=== PATIENT | female | born 1995 | race Asian ===

== ENCOUNTER 2020-07-02 16:15 | Inpatient (IN) | payer OTHER ==
[~2020-07-02] VITALS: Ht 160 cm; Wt 67.4 kg
[2020-07-02] VITALS (8 sets, daily range): BP systolic 106–131; BP diastolic 65–80
[2020-07-02] MEDS ORDERED: PRENTAB9 PO (16:45)
[2020-07-02] MEDS ORDERED: APAP325T4 PO (16:45)
[2020-07-02] MEDS ORDERED: TUMS750C5 PO (16:45)
[2020-07-02] MEDS ORDERED: LACTATED RINGER'S 1000 ML IV ONE (17:30)
[2020-07-02] MEDS ORDERED: miSOPROStol 50 MCG 1/2 TAB (S0191) PO ONE ×2 (17:30→21:30)
[2020-07-02 17:40] LABS: HEMATOCRIT 38.5 % (36.0-47.0); HEMOGLOBIN 12.7 g/dl (12.0-15.5); MEAN CORPUSCULAR HEMOGLOBIN 29.4 pg (27.0-33.0); MEAN CORPUSCULAR VOLUME 89.1 fl (80.0-96.0); PLATELET COUNT, AUTOMATED 176 10^3/uL (150-450); RED BLOOD COUNT 4.32 10^6/uL (4.00-5.40); WHITE BLOOD COUNT 12.1 10^3/uL (4.0-10.0)
[2020-07-03] VITALS (18 sets, daily range): BP systolic 98–140; BP diastolic 57–94
[2020-07-03] MEDS: LR 1,000 ML IV SCH ×4 (04:30→17:21)
[2020-07-03] MEDS ORDERED: miSOPROStol 50 MCG 1/2 TAB (S0191) PO ONE (08:30)
[2020-07-03] MEDS ORDERED: miSOPROStol 50 MCG 1/2 TAB (S0191) PO PRN (12:00)
--- NOTE | 2020-07-03 17:45 | IPNPDOC ---
Text Note Date of Service The patient was seen on 07/03/20. NOTE S: Patient having some cramps. No LOF. +FM. O: VSS WNL ABD NT, gravid SVE: 2/80/-2 FHT: Cat 1, 130s, reactive, no decels, irregular ctx Lea bulb placed with 40cc without difficulty A/P: Fetus reassuring. Patient progressing in latent labor. D/w patient diff erent IOL techniques of cytotec, pitocin and lea bulb R/B/As. Also d/w pain mgt options for her. Will give next dose of cytotec 25mcg PO then switch to pitocin IV as cervical ripening will be complete. VS,Fishbone, I+O VS, Fishbone, I+O Vital Signs Date Time Temp Pulse Resp B/P (MAP) Pulse Ox O2 Delivery O2 Flow Rate FiO2 07/03/20 15:08 97.9 85 18 118/75 (89) I&O- Last 24 Hours up to 6 AM 07/03/20 05:59 Intake Total 240 ml Output Total 200 ml Balance 40 ml Sarah Chin MD Jul 03, 2020 17:45
[2020-07-03] MEDS ORDERED: LR 1,000 ML IV SCH (17:46)
[2020-07-03] MEDS ORDERED: miSOPROStol 25 MCG 1/4 TAB (S0191) PO ONE (18:00)
[2020-07-03] MEDS ORDERED: OXYTOCIN DRIP 30 UNITS in IV 1 EA IV SCH (22:00)
[2020-07-04] VITALS (39 sets, daily range): BP systolic 110–137; BP diastolic 65–92
[2020-07-04] MEDS: LR 1,000 ML IV SCH ×3 (04:00→20:36)
--- NOTE | 2020-07-04 07:02 | IPNPDOC ---
Text Note Date of Service The patient was seen on 07/04/20. NOTE S: Comfortable. Began pitocin. O: VSS WNL ABD gravid, NT SVE def, leonora fell out last night LE no edema, NT FHT: cat 1, 130s, reactive, no decels, ctx q2-3min A/P: Fetus reassuring. Continue pitocin. VS,Fishbone, I+O VS, Fishbone, I+O Vital Signs Date Time Temp Pulse Resp B/P (MAP) Pulse Ox O2 Delivery O2 Flow Rate FiO2 07/04/20 06:27 72 18 117/70 (86) 07/03/20 18:12 98.0 I&O- Last 24 Hours up to 6 AM 07/04/20 05:59 Intake Total 2575 ml Balance 2575 ml Sarah Chin MD Jul 04, 2020 07:02
[2020-07-04] MEDS ORDERED: BUTORPHANOL 2 MG/ML INJ (J0595) IV PRN (10:45)
[2020-07-04] MEDS ORDERED: PROMETHAZINE INJ 25 MG/ML VIAL (J2550) IV PRN (10:45)
[2020-07-05] VITALS (20 sets, daily range): BP systolic 107–132; BP diastolic 55–80
[2020-07-05] MEDS ORDERED: SIMETHICONE 80 MG CHEW TAB PO PRN (02:00)
[2020-07-05] MEDS ORDERED: CALCIUM CARBONATE 500 MG CHEW U/D PO PRN (02:00)
[2020-07-05] MEDS ORDERED: diphenhydrAMINE 25MG CAP PO PRN (02:00)
[2020-07-05] MEDS: LR 1,000 ML IV SCH ×2 (03:18→08:09)
[2020-07-05] MEDS ORDERED: OXYTOCIN DRIP 30 UNITS in IV 1 EA IV SCH (03:55)
[2020-07-05] MEDS ORDERED: ANUSOL HC CREAM 30GM TOP PRN (04:00)
[2020-07-05] MEDS ORDERED: ONDANSETRON 4MG/2ML VIAL IV PRN (04:00)
[2020-07-05] MEDS ORDERED: RHOGAM 300 MCG (1500 IU) INJ (J2790) IM SCH (04:00)
[2020-07-05] MEDS ORDERED: LIDOCAINE 1% MDV 20ML VIAL INFIL ONE (04:00)
[2020-07-05] MEDS ORDERED: DIBUCAINE 1% OINTMENT 30GM TOP PRN (04:00)
[2020-07-05] MEDS ORDERED: METHYLERGONOVINE MALEATE 0.2 MG TAB PO PRN (04:00)
[2020-07-05] MEDS ORDERED: MEASLES,MUMPS,RUBELLA VACCINE INJ (MMR-II) (90707) SC SCH (04:00)
--- NOTE | 2020-07-05 04:00 | DNPDOC ---
[facility] Delivery Note Delivery Note DATE OF DELIVERY: 07/05/2020 PREDELIVERY DIAGNOSIS: 41-3/7 weeks' gestation and labor. POST DELIVERY DIAGNOSIS: Delivered. PROCEDURE: Spontaneous vaginal delivery. PULP REFINER OPERATOR: Dr. Sarah Chin ANESTHESIA: Local. ESTIMATED BLOOD LOSS: 250 mL. FINDINGS: 7 pound 15ounce 3600gm girl infant, Score 8/9, nuchal cord times 0. DELIVERY SUMMARY: Patient is a 24-year-old 1 now para 1 who was admitted to labor and delivery for active labor for 50hours. Patient SROM clear around 0116 today. Baby girl was rotated from OP to OA prior to delivery of head was delivered without difficulty as ML episiotomy was cut due to tearing toward perineum in KLEVER position at 0251 . The nose and mouth were bulb suctioned. No nuchal cord was noted. The shoulders were then delivered without difficulty. Infant was handed on mother's belly. Cord was then clamped x2 and cut after pulsation. Pitocin bolus was started. Perineum and vagina was inspected and found to have a deep left vaginal laceration and ML episiotomy. This was repaired with 1% lidocaine 20cc with 2-0 and 0-0chromic. The placenta was then delivered at 0316 spontaneously intact. Cord had a 3 vessel cord. EBL was 350mL. The vagina and perineum were reinspected and no further lacerations were found and hemostasis was good. Fundus was firm. Patient tolerated delivery well. Sarah Chin MD Jul 05, 2020 01:53
[2020-07-05] MEDS: DOCUSATE SODIUM 100 MG CAP PO SCH ×2 (08:08→21:49)
[2020-07-05] MEDS: PRENATAL VITAMINS CHEWABLE TABLET PO SCH (08:08)
[2020-07-05] MEDS: ACETAMINOPHEN 500 MG TAB PO PRN (08:08)
[2020-07-05] MEDS: IBUPROFEN 800 MG TAB PO PRN ×2 (16:38→21:49)
--- NOTE | 2020-07-06 04:22 | IPNPDOC ---
Progress Note Date of Service: Jul 06, 2020 Day#: 1 Progress Note SUBJECT: 24-year-old 1 now Para 1 status post uncomplicated spontaneous vaginal delivery over MLE, doing well day #1. She has been ambulating, voiding spontaneously without issue and tolerating regular diet. Breast feeding without issue. Reports lochia is decreasing. Patient is ambulating well. Reports perineal pain that is controlled with pain meds. Voiding without difficulty. OBJECTIVE: VITAL SIGNS: Within normal limits, afebrile. Alert and oriented times three. No exaggerated respiratory effort appreciated. Heart rate: Regular rate and rhythm, no murmurs, rubs or gallops. Abdomen: Fundus firm at U-2. Soft, NTTP. : Minimal lochia, MLE repair well-approximated with mild edema ASSESSMENT: 24-year-old 1 now Para 1 status post uncomplicated spontaneous vaginal delivery over MLE, doing well on day 1. Vitals within normal limits, afebrile, hemodynamically stable with no evidence of infection. PLAN: 1. Continue inpatient care today, discharge planning for tomorrow. 2. Continue current pain mgmt. 3. Encourage breast feeding with support PRN. 4. Encourage regular diet and ambulation OOB as tolerated VS, I&O, 24H, Fishbone Vital Signs/I&O Vital Signs Date Time Temp Pulse Resp B/P (MAP) Pulse Ox O2 Delivery O2 Flow Rate FiO2 07/05/20 18:00 97.8 84 18 119/75 (90) 97 Room Air I&O- Last 24 Hours up to 6 AM 07/06/20 05:59 Intake Total 120 ml Output Total 650 ml Balance -530 ml GLORIA DANG DO Jul 06, 2020 04:22
[2020-07-06 06:00] VITALS: BP 118/79
[2020-07-06] MEDS: DOCUSATE SODIUM 100 MG CAP PO SCH ×2 (09:35→21:00)
[2020-07-06] MEDS: IBUPROFEN 800 MG TAB PO PRN ×2 (09:35→22:32)
[2020-07-06] MEDS: PRENATAL VITAMINS CHEWABLE TABLET PO SCH (09:35)
[2020-07-06 18:00] VITALS: BP 125/81
[2020-07-07 06:00] VITALS: BP 132/86
[2020-07-07] MEDS: ACETAMINOPHEN 500 MG TAB PO PRN (06:21)
[2020-07-07] MEDS: PRENATAL VITAMINS CHEWABLE TABLET PO SCH (08:30)
[2020-07-07] MEDS: DOCUSATE SODIUM 100 MG CAP PO SCH (08:30)
[2020-07-07] MEDS: IBUPROFEN 800 MG TAB PO PRN (10:42)
--- NOTE | 2020-08-16 14:08 | HPE ---
DATE OF ADMISSION: 07/02/2020 This is a 24-year-old 1, para 0, last menstrual period (LMP) 09/15/2019, estimated date of confinement (EDC) 06/24/2020 at 41 and 2 weeks of gestation for induction of labor. Labs are O positive, HIV negative, hepatitis negative, RPR negative, Rubella immune, Varicella equivocal. Pap normal. Urine had mixed marielena. Gonorrhea and chlamydia are negative. One-hour glucose is 115. Temperature is 98.5, blood pressure 131/79, respirations 20, pulse is 82. On examination, no distress. Symphysis fundus height is 40, vertex, occiput anterior (OA), 1 cm, posterior, -3 station, 50% effaced, category 1 strip. Urine is 1025, pH is 5, leukocytes plus, nitrates negative, protein trace, ketones negative. The rest of the examination is unremarkable. She is normocephalic, atraumatic. Neck: Full range of motion. Pupils equal and reactive to light. Distal pulses are symmetric. No evidence of deep venous thrombosis (DVT), pulmonary embolus (PE), or superificial phlebitis. Chest is clear bilaterally to bases. No wheezes or rhonchi. No costovertebral angle tenderness. Abdomen is soft. Four-quadrant bowel sounds are noted. She has no rashes, lesions, or pruritus. No arthralgia or myalgia. No complaint of joint pint. No complaint of cough, wheeze, shortness of breath, or dyspnea on exertion. No nausea, vomiting, diarrhea, or constipation. No bruising. Neurologic complete. She has no heat or cold sensitivity and no diabetic issues. PAST GYNECOLOGIC HISTORY: She has a normal Pap smear. No evidence of sexual transmitted diseases (STDs). PAST MEDICAL AND SURGICAL HISTORY: Unremarkable. FAMILY HISTORY: Noncontributory. SOCIAL HISTORY: She does not smoke, drink, abuse drugs. She is to a soldier, and there is no domestic violence. Good support systems. No known allergies. We had a discussion regarding vaginal delivery, in which delivery is through the vagina with the possibility of the use of forceps or vacuum devices if needed for maternal or indications. Forceps or vacuums are devices that can assist with vaginal delivery when normal pushing efforts cannot achieve delivery on their own or when delivery is needed in emergency for baby's well being. Medications may be used to induce or augment labor in order to achieve vaginal delivery. An episiotomy may be required to help the baby delivery vaginally. You may also sustain lacerations or tears of the vagina upon delivery of the baby, which required repair. In some cases emergencies arise that we need to do an emergency section. These are based on medical indications and indications that we will discuss with you prior to commencement. The risks of vaginal delivery include, not limited to, bleeding, infection, injury to the vagina, pelvic structures, injury to baby, damage to the uterus, reaction to anesthesia, uterine rupture, risk of hysterectomy for life-threatening bleeding issues. Medications used to induce or augment delivery may lead to uterine tachysystole, uterine rupture, heart rate abnormalities, need for emergency section, possible hysterectomy because of hemorrhage. There may be tears or lacerations, the risk of urinary or bowel incontinence, and risks to using forceps or vacuum include scratches, hematomas of the head, or intracranial bleed. Patient expressed understanding. Was most concerned about this, but these are the natural events that occur with vaginal or abdominal delivery. Expressed understanding. Safe to proceed. We are going to plan on hydrating the patient, misoprostol 50 mg by mouth times one dose, and evaluate in 4 hours. All questions were answered, a 40-minute discussion. JOSE
--- NOTE | 2020-08-20 18:00 | IPN ---
DATE: 07/03/2020 This lady is 1, para 0, now at 41 and 3, who was admitted for induction of labor. She had two lots of Misoprostol over the 8 hours. She had a few minor contractions. She was allowed to sleep overnight and had continuous monitoring. This morning, again category 1 strip, no evidence of contractions. We are going to allow her to eat and restart her induction of labor. After cervical check, the patient and baby are tolerating procedures well, safe to proceed. JOSE
== END 2020-07-07 12:30 | disposition home or self-care (01) | DRG 806 ==
LOC: M LDI 16:15 → M OBS 07-05 08:55
PROVIDERS: ADMIT Obstetrics & Gynecology; ATTEND Obstetrics & Gynecology
PROC: 3E0P7GC Introduction of Other Therapeutic Substance into Female Reproductive, Via Natural or Artificial Opening (ICD-10-PCS; 2020-07-02)
PROC: 10E0XZZ Delivery of Products of Conception, External Approach (ICD-10-PCS; principal; 2020-07-05)
PROC: 0W8NXZZ Division of Female Perineum, External Approach (ICD-10-PCS; 2020-07-05)
PROC: 0UQGXZZ Repair Vagina, External Approach (ICD-10-PCS; 2020-07-05)
DX: O48.0 Post-term pregnancy (principal); Z37.0 Single live birth; O71.4 Obstetric high vaginal laceration alone; Z3A.41 41 weeks gestation of pregnancy